=== PATIENT | female | born 1990 | race Caucasian/White ===

== ENCOUNTER 2017-03-22 05:43 | Emergency (ER) | payer OTHER ==
[~2017-03-22] VITALS: Ht 152.4 cm; Wt 52.2 kg
[2017-03-22 05:43] VITALS: BP_SYST 127
--- NOTE | 2017-03-22 05:43 | NUR ---
Patient to ER bed 7 to gown for evaluation. Side rails up. Report given to JAYMIE BRIZUELA.
--- NOTE | 2017-03-22 05:45 | NUR ---
Patient AAO x4, sitting in bed c/o palpitations, difficulty breathing and not being able to sleep after drinking three energy drinks. Patient denies chest pain, no acute distress noted. Vital signs within normal limits. Will continue to monitor.
--- NOTE | 2017-03-22 05:50 | NUR ---
ER at bedside examining patient.
[2017-03-22] MEDS ORDERED: NACL 0.9% 1,000 ML IV ONE ×2 (06:00→07:15)
[2017-03-22] MEDS ORDERED: LORazepam 2 MG/ML VIAL IVP ONE (06:00)
[2017-03-22] MEDS ORDERED: LORazepam 2 MG/ML VIAL (FOR ER USE) ONE (06:12)
--- NOTE | 2017-03-22 06:15 | NUR ---
# 20 gauge angiocath placed to L AC. Use of asceptic technique. Opsite placed over site. Blood return noted. Two identifiers used. Blood for lab drawn from site. Flushed with 10 cc of normal saline. No evidence of infiltration noted. Patient tolerated well.
[2017-03-22 06:39] LABS: BASOPHILS % (AUTO) 0.5 % (0.0-2.0); EOSINOPHILS # (AUTO) 0.1 K/uL (0.0-0.4); HEMATOCRIT 41.7 % (36-48); HEMOGLOBIN 14.1 g/dL (12.0-16.0); LYMPHOCYTES # (AUTO) 1.8 K/uL (1.0-5.5); LYMPHOCYTES % (AUTO) 29.1 % (20.5-51.5); MEAN CORPUSCULAR HEMOGLOBIN 31 pg (27-31); MEAN CORPUSCULAR HGB CONC 34 % (32-36); MEAN CORPUSCULAR VOLUME 91 fL (79.0-98.0); MONOCYTES # (AUTO) 0.4 K/uL (0.0-1.0); MONOCYTES % (AUTO) 6.7 % (1.7-9.3); NEUTROPHILS # (AUTO) 3.8 K/uL (1.8-7.7); NEUTROPHILS % (AUTO) 62.7 % (40.0-70.0); PLATELET COUNT (AUTO) 264 K/uL (130-430); RED BLOOD CELL COUNT(AUTO) 4.59 MIL/uL (4.2-6.2); RED CELL DISTRIBUTION WIDTH 11.3 % (9.0-15.0); WHITE BLOOD COUNT (AUTO) 6.1 K/uL (4.8-10.8)
--- NOTE | 2017-03-22 06:45 | NUR ---
Patient tolerated all medications well. No adverse reactions noted. Will continue to monitor.
[2017-03-22 06:55] LABS: CALCIUM 8.9 mg/dL (8.4-11.0); CREATININE 0.94 mg/dL (0.55-1.30); POTASSIUM 3.1 mmol/L (3.5-5.1)
[2017-03-22 06:56] LABS: INR 1.1 (0.8-1.2); PROTHROMBIN TIME 11.8 SECS (9.5-12.5)
[2017-03-22 07:00] LABS: ALBUMIN 4.3 g/dL (3.4-4.8); TOTAL PROTEIN, SERUM 7.9 g/dL (6.4-8.3)
--- NOTE | 2017-03-22 07:05 | NUR ---
Report given to JAYMIE Jerez: all care endorsed.
--- NOTE | 2017-03-22 07:24 | NUR ---
pt is sleeping,unable to woke her up,response to pain stimuli.breath even.no distress noted.
--- NOTE | 2017-03-22 08:20 | NUR ---
assited pt walking to the bathroom,pt is drowsy,unsteady gait.small amount of urine collected.
--- NOTE | 2017-03-22 08:44 | NUR ---
pending for discharge.awaiting her ride.
[2017-03-22 09:19] VITALS: BP_SYST 120
--- NOTE | 2017-03-22 09:23 | NUR ---
Patient given written and verbal discharge instructions and verbalizes understanding. ER MD discussed with patient the results and treatment provided. Patient in stable condition. ID arm band removed. IV catheter removed intact and dressing applied, no active bleeding. Rx of 0 given. Patient educated on pain management and to follow up with PMD. Pain Scale 0/10. Opportunity for questions provided and answered.
== END 2017-03-22 09:23 | disposition home or self-care (01) ==
LOC: SED 05:43
DX: F41.9 Anxiety disorder, unspecified (principal); R00.2 Palpitations; F17.210 Nicotine dependence, cigarettes, uncomplicated
CPT/HCPCS: 36415; 80053; 81025; 82550; 85025; 85610; 85730; 93005; 96361; 96374; 99285; J2060; J7030